=== PATIENT | male | born 1985 | race Caucasian/White ===

== ENCOUNTER 2023-04-22 12:26 | Emergency (ER) | payer OTHER ==
[~2023-04-22] VITALS: Ht 172.7 cm; Wt 84.8 kg
[2023-04-22 12:47] VITALS: BP 142/81; PULSE 106; RESP 20; TEMP 97.7; O2SAT 98
[2023-04-22] MEDS: ACETAMINOPHEN/CODEINE 300/30MG 1 TAB PO ONE (13:30)
[2023-04-22] MEDS ORDERED: ACET-6951 PO (14:17)
[2023-04-22] MEDS ORDERED: ALBU0.0912 IH (14:17)
[2023-04-22] MEDS ORDERED: LORA10TA19 PO (14:17)
[2023-04-22 14:25] VITALS: BP 142/81; PULSE 106; RESP 20; TEMP 97.7; O2SAT 98
== END 2023-04-22 14:26 | disposition home or self-care (01) ==
LOC: MED 12:26
DX: J20.8 Acute bronchitis due to other specified organisms (principal); B97.89 Other viral agents as the cause of diseases classified elsewhere
CPT/HCPCS: 71045; 99283